=== PATIENT | male | born 1980 | race Caucasian/White ===

== ENCOUNTER 2016-04-25 18:00 | Emergency (ER) | payer BC, SELFPAY ==
[2016-04-25] MEDS ORDERED: METOCLOPRAMIDE 10 MG/2 ML VIAL ONE (22:47)
[2016-04-25] MEDS ORDERED: DIPHENHYDRAMINE 50 MG/ML VIAL ONE (22:48)
[2016-04-25] MEDS ORDERED: LABETALOL 100 MG/20 ML VIAL ONE (22:48)
== END 2016-04-26 00:33 | disposition home or self-care (01) ==
LOC: ER 18:00
DX: R51 Headache (principal); I10 Essential (primary) hypertension; F17.210 Nicotine dependence, cigarettes, uncomplicated
CPT/HCPCS: 36415; 70450; 80053; 85025; 93005; 96374; 96375